=== PATIENT | female | born 2000 | race Caucasian/White ===

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

== ENCOUNTER 2022-10-24 13:23 | Emergency (ER) | payer MEDICAID, SELFPAY ==
[2022-10-24 13:31] VITALS: BP 126/77; PULSE 73; RESP 20; TEMP 36.7; O2SAT 100; BMI 22.1
--- NOTE | 2022-10-24 13:31 | ED_ITS ---
HPI - Female Genitourinary General Chief complaint: Vaginal Bleeding <TRISTA Jacob - Last Filed: 10/24/22 13:34> Stated complaint: Vaginal bleed X1 month <TRISTA Jacob - Last Filed: 10/24/22 13:34> Time Seen by Provider: 10/24/22 17:53 <TRISTA Jacob - Last Filed: 10/24/22 13:34> Source: patient, RN notes reviewed and old records reviewed <Michael Ortiz - Last Filed: 10/24/22 18:09> Mode of arrival: ambulatory <Michael Ortiz - Last Filed: 10/24/22 18:09> Limitations: no limitations <Michael Ortiz - Last Filed: 10/24/22 18:09> History of Present Illness HPI Narrative: 22-year-old female with past medical history significant for iron deficiency anemia presents for evaluation of vaginal bleeding. Patient reports that she has had vaginal bleeding daily for the last month. She has a Nexplanon implant her left arm that has been present for at least 6 months She has had no other changes to medications. She stop taking iron pills 2 years ago The patient denies any pain She did endorse some weakness when walking today She called her primary doctor to get an appointment was referred to the emergency department to ?make sure I do not need a blood transfusion. ? Denies any fevers, chills <Michael Ortiz - Last Filed: 10/24/22 18:09> Related Data Home medications: Previous Rx's Medication Instructions Recorded omeprazole 20 mg capsule,delayed 20 mg PO DAILY #20 caps 06/14/21 release ondansetron 4 mg disintegrating 4 mg PO Q6H PRN nausea and 06/14/21 tablet vomiting #15 tabs <TRISTA Jacob - Last Filed: 10/24/22 13:34> Allergies/Adverse reactions: Allergies Allergy/AdvReac Type Severity Reaction Status Date / Time Benzodiazepines Allergy Unknown ANGIOEDEMA Unverified 05/24/20 17:04 [BENZODIAZEPINES] cat dander [CATS] Allergy Unknown UNKNOWN Unverified 05/24/20 17:04 dog dander [DOGS] Allergy Unknown UNKNOWN Unverified 05/24/20 17:04 haloperidol [From HALDOL] Allergy Unknown ANGIOEDEMA Unverified 05/24/20 17:04 olive oil [OLIVE OIL] Allergy Unknown LIP Unverified 05/24/20 17:04 SWELLING pear [PEAR] Allergy Unknown LIP Unverified 05/24/20 17:04 SWELLING benzodiazepam Allergy Unknown Uncoded 09/24/16 00:00 cat dander Allergy Unknown Uncoded 09/24/16 00:00 dog dander Allergy Unknown Uncoded 09/24/16 00:00 haloperidol Allergy Unknown Uncoded 09/24/16 00:00 <TRISTA Jacob - Last Filed: 10/24/22 13:34> Review of Systems Constitutional: Constitutional: Reports as per HPI, Denies chills, Denies fever(s) and Reports weakness <Michael Ortiz - Last Filed: 10/24/22 18:09> Cardiovascular: Cardiovascular: Denies chest pain and Denies dyspnea <Michael Ortiz - Last Filed: 10/24/22 18:09> Respiratory: Respiratory: Denies cough and Denies dyspnea <Michael Ortiz - Last Filed: 10/24/22 18:09> Gastrointestinal: Gastrointestinal: Denies abdominal pain, Denies constipation and Denies vomiting <Michael Ortiz - Last Filed: 10/24/22 18:09> Genitourinary: Genitourinary: Denies dysuria and Reports other (Reports vaginal bleeding) <Michael Ortiz - Last Filed: 10/24/22 18:09> Neurologic: Reports weakness <Michael Ortiz - Last Filed: 10/24/22 18:09> [facility] Past Medical History Medical History: Medical History (Updated 10/24/22 @ 18:08 by Michael Ortiz) Anxiety Depression <TRISTA Jacob - Last Filed: 10/24/22 13:34> Social History Social History: Social History Alcohol intake: never Advance Directives: No Advance Directives Information Provided: Yes <TRISTA Jacob - Last Filed: 10/24/22 13:34> Physical Exam Vital Signs: Vital Signs: Last Vital Signs Temp 98.0 F 10/24/22 13:31 Pulse 73 10/24/22 13:31 Resp 20 10/24/22 13:31 BP 126/77 10/24/22 13:31 Pulse Ox 100 10/24/22 13:31 O2 Del Method 10/24/22 13:31 BMI result Body Mass Index 22.1 <TRISTA Jacob - Last Filed: 10/24/22 13:34> Vital Signs: Last Vital Signs Temp 98.0 F 10/24/22 13:31 Pulse 73 10/24/22 13:31 Resp 20 10/24/22 13:31 BP 126/77 10/24/22 13:31 Pulse Ox 100 10/24/22 13:31 O2 Del Method 10/24/22 13:31 BMI result Body Mass Index 22.1 <Michael AlanizMadison - Last Filed: 10/24/22 18:09> Const: General: cooperative, healthy appearing, comfortable, no acute distress, alert, awake and Physically active <Michael Ortiz - Last Filed: 10/24/22 18:09> Orientation/consciousness: patient oriented x3 <Michael Garrisony - Last Filed: 10/24/22 18:09> Limitations: no limitations <Michael AlanizMadison - Last Filed: 10/24/22 18:09> HEENT: Head: Yes normocephalic and Yes atraumatic <Michael OMg - Last Filed: 10/24/22 18:09> Neck: Neck: Yes normal visual inspection, Yes full ROM, Yes supple and No lymphadenopathy <Michael AlanizMadison - Last Filed: 10/24/22 18:09> Resp: Effort & Inspection: normal respiratory effort and able to speak in complete sentences <Michael Ortiz - Last Filed: 10/24/22 18:09> Auscultation: clear to auscultation bilaterally <Michael AlanizMadison Last Filed: 10/24/22 18:09> Cardio: Rate: regular rate <Michael O'Madison - Last Filed: 10/24/22 18:09> Rhythm: regular rhythm <Michaelkarly Garrison Last Filed: 10/24/22 18:09> GI: Inspection: No distended <Michael Ortiz Last Filed: 10/24/22 18:09> Palpation (GI): Soft to palpation, nontender and no guarding <Michael Garrisony - Last Filed: 10/24/22 18:09> : Other: Deferred per patient request <Michael Ortiz - Last Filed: 10/24/22 18:09> Skin: General skin exam: no rashes or lesions noted <Michael Ortiz - Last Filed: 10/24/22 18:09> Neuro: General: patient oriented x3 <Michael Ortiz - Last Filed: 10/24/22 18:09> Course Course Course Narrative: RME-13:35pm - 22yoF with a PMHx of anemia who is presenting to the ER with complaints of abnormal vaginal bleeding with clots since October 03 that has been persistent. She reports associated dizziness and decreased appetite. Reports she is using tampons approximately 2 tampons every 1-2 hours. She denies any nausea/vomiting, chest pain or shortness of breath, abdominal pain, dysuria, diarrhea constipation or any other symptoms complaints or concerns at this time. Plan: Labs, UA, type and screen ordered at this time. Patient to be sent back to the waiting room to be evaluated in the ED. <TRISTA Jacob - Last Filed: 10/24/22 13:34> Medical Decision Making Medical Decision Making MDM Narrative: For 22-year-old female presents for evaluation of vaginal bleeding x1 month. She has a known history of iron deficiency anemia has been noncompliant with her iron supplementation for last 2 years. She has had no recent change to her contraceptive management she has a Nexplanon for last 6 months or more. Patient's hemoglobin is 11.2 OS is on the higher end of her baseline of around 10. Her vital signs are stable. Patient deferred pelvic examination at this time. She would like to be discharged this time as she does not require blood transfusion and is medically stable. <Michael Ortiz - Last Filed: 10/24/22 18:09> Differential Diagnosis Vaginal bleeding, dysmenorrhea, menorrhagia, metformin nausea, anemia, symptomatic anemia <Michael Ortiz - Last Filed: 10/24/22 18:09> Lab Data [facility] Lab Attestation statement: I reviewed the patient's lab results. <Michael Ortiz - Last Filed: 10/24/22 18:09> Mild microcytic anemia <Michael Ortiz - Last Filed: 10/24/22 18:09> Result Diagrams: 10/24/22 14:02 10/24/22 14:02 <TRITSA Jacob - Last Filed: 10/24/22 13:34> Labs: Lab Results 10/24/22 10/24/22 10/24/22 Range/Units 14:02 14:02 14:02 WBC 8.4 (4.8-10.8) X10*3/uL RBC 6.06 H (4.20-5.50) X10*6/uL Hgb 11.2 L (12.0-16.0) g/dl Hct 37.4 (37.0-47.0) % MCV 61.7 L (80.0-98.0) fL MCH 18.5 L (27.0-33.0) pg MCHC 29.9 L (31.0-35.0) g/dl RDW 16.7 H (11.0-16.0) % Plt Count 242 (160-400) X10*3/uL MPV Not Reportable Immature Gran % (Auto) 0.5 H (0.0-0.4) % Neut % (Auto) 62.6 (45-73) % Lymph % (Auto) 25.2 (20-40) % [place] % (Auto) 6.2 (2-11) % Eos % (Auto) 5.0 H (0-4) % Baso % (Auto) 0.5 (0-2) % Lymph # (Auto) 2.1 (1.2-4.9) X10*3/uL [place] # (Auto) 0.5 (0.1-1.2) X10*3/uL Eos # (Auto) 0.4 (0.0-0.4) X10*3/uL Baso # (Auto) 0.0 (0.0-0.2) X10*3/uL Abs Immat Gran (auto) 0.04 H (0.00-0.03) X10*3/uL Absolute Neuts (auto) 5.3 (2.0-8.3) x10*3/uL Absolute Nucleated RBC 0.000 (0.0-0.012) X10*3/uL Nucleated RBC % (auto) 0.0 (0.0-0.2) /100WBC PT 12.5 (10.0-13.1) SEC INR 1.1 (0.9-1.1) Sodium 139 (135-145) mmol/L Potassium 4.3 (3.3-5.1) mmol/L Chloride 106 (96-108) mmol/L Carbon Dioxide 24 (22-29) mmol/L Anion Gap 13 (12-20) BUN 11 (9-16) mg/dL Creatinine 0.78 (0.5-1.4) mg/dL Estim Creat Clear Calc 103.4 Estimated GFR > 60 Random Glucose 98 (60-115) mg/dL Calcium 9.5 D (8.4-10.2) mg/dL Magnesium 2.0 (1.6-2.6) mg/dL Total Bilirubin 0.7 (0.0-1.0) mg/dL AST 16 (5-31) U/L ALT 17 (0-31) U/L Alkaline Phosphatase 95 (39-117) U/L Total Protein 7.9 (6.5-8.0) g/dL Albumin 4.6 (3.5-5.0) g/dL Lipase 9 (8-78) U/L Beta HCG, Quant < 2 mIU/mL Urine Color Urine Appearance Urine pH (5.0-9.0) Ur Specific [place] (1.005-1.025) Urine Protein (Neg-Trace) mg/dL Urine Glucose (UA) (Negative) mg/dL Urine Ketones (Negative) mg/dL Urine Blood (Negative) Urine Nitrite (Negative) Ur Leukocyte Esterase (Negative) Influenza Type A (PCR) (Negative) Influenza Type B (PCR) (Negative) RSV RNA Qual (PCR) (Negative) SARS-CoV-2 RNA (RT-PCR) (Negative) 10/24/22 10/24/22 Range/Units 14:02 14:07 WBC (4.8-10.8) X10*3/uL RBC (4.20-5.50) X10*6/uL Hgb (12.0-16.0) g/dl Hct (37.0-47.0) % MCV (80.0-98.0) fL MCH (27.0-33.0) pg MCHC (31.0-35.0) g/dl RDW (11.0-16.0) % Plt Count (160-400) X10*3/uL MPV Immature Gran % (Auto) (0.0-0.4) % Neut % (Auto) (45-73) % Lymph % (Auto) (20-40) % Mercer % (Auto) (2-11) % Eos % (Auto) (0-4) % Baso % (Auto) (0-2) % Lymph # (Auto) (1.2-4.9) X10*3/uL [place] # (Auto) (0.1-1.2) X10*3/uL Eos # (Auto) (0.0-0.4) X10*3/uL Baso # (Auto) (0.0-0.2) X10*3/uL Abs Immat Gran (auto) (0.00-0.03) X10*3/uL Absolute Neuts (auto) (2.0-8.3) x10*3/uL Absolute Nucleated RBC (0.0-0.012) X10*3/uL Nucleated RBC % (auto) (0.0-0.2) /100WBC PT (10.0-13.1) SEC INR (0.9-1.1) Sodium (135-145) mmol/L Potassium (3.3-5.1) mmol/L Chloride (96-108) mmol/L Carbon Dioxide (22-29) mmol/L Anion Gap (12-20) BUN (9-16) mg/dL Creatinine (0.5-1.4) mg/dL Estim Creat Clear Calc Estimated GFR Random Glucose (60-115) mg/dL Calcium (8.4-10.2) mg/dL Magnesium (1.6-2.6) mg/dL Total Bilirubin (0.0-1.0) mg/dL AST (5-31) U/L ALT (0-31) U/L Alkaline Phosphatase (39-117) U/L Total Protein (6.5-8.0) g/dL Albumin (3.5-5.0) g/dL Lipase (8-78) U/L Beta HCG, Quant mIU/mL Urine Color Yellow Urine Appearance Clear Urine pH 6.0 (5.0-9.0) Ur Specific [place] 1.025 (1.005-1.025) Urine Protein Trace (Neg-Trace) mg/dL Urine Glucose (UA) Negative (Negative) mg/dL Urine Ketones Negative (Negative) mg/dL Urine Blood Negative (Negative) Urine Nitrite Negative (Negative) Ur Leukocyte Esterase Negative (Negative) Influenza Type A (PCR) NEGATIVE (Negative) Influenza Type B (PCR) NEGATIVE (Negative) RSV RNA Qual (PCR) NEGATIVE (Negative) SARS-CoV-2 RNA (RT-PCR) NEGATIVE (Negative) <TRISTA Jacob - Last Filed: 10/24/22 13:34> Lab Results 10/24/22 10/24/22 10/24/22 Range/Units 14:02 14:02 14:02 WBC 8.4 (4.8-10.8) X10*3/uL RBC 6.06 H (4.20-5.50) X10*6/uL Hgb 11.2 L (12.0-16.0) g/dl Hct 37.4 (37.0-47.0) % MCV 61.7 L (80.0-98.0) fL MCH 18.5 L (27.0-33.0) pg MCHC 29.9 L (31.0-35.0) g/dl RDW 16.7 H (11.0-16.0) % Plt Count 242 (160-400) X10*3/uL MPV Not Reportable Immature Gran % (Auto) 0.5 H (0.0-0.4) % Neut % (Auto) 62.6 (45-73) % Lymph % (Auto) 25.2 (20-40) % [place] % (Auto) 6.2 (2-11) % Eos % (Auto) 5.0 H (0-4) % Baso % (Auto) 0.5 (0-2) % Lymph # (Auto) 2.1 (1.2-4.9) X10*3/uL [place] # (Auto) 0.5 (0.1-1.2) X10*3/uL Eos # (Auto) 0.4 (0.0-0.4) X10*3/uL Baso # (Auto) 0.0 (0.0-0.2) X10*3/uL Abs Immat Gran (auto) 0.04 H (0.00-0.03) X10*3/uL Absolute Neuts (auto) 5.3 (2.0-8.3) x10*3/uL Absolute Nucleated RBC 0.000 (0.0-0.012) X10*3/uL Nucleated RBC % (auto) 0.0 (0.0-0.2) /100WBC PT 12.5 (10.0-13.1) SEC INR 1.1 (0.9-1.1) Sodium 139 (135-145) mmol/L Potassium 4.3 (3.3-5.1) mmol/L Chloride 106 (96-108) mmol/L Carbon Dioxide 24 (22-29) mmol/L Anion Gap 13 (12-20) BUN 11 (9-16) mg/dL Creatinine 0.78 (0.5-1.4) mg/dL Estim Creat Clear Calc 103.4 Estimated GFR > 60 Random Glucose 98 (60-115) mg/dL Calcium 9.5 D (8.4-10.2) mg/dL Magnesium 2.0 (1.6-2.6) mg/dL Total Bilirubin 0.7 (0.0-1.0) mg/dL AST 16 (5-31) U/L ALT 17 (0-31) U/L Alkaline Phosphatase 95 (39-117) U/L Total Protein 7.9 (6.5-8.0) g/dL Albumin 4.6 (3.5-5.0) g/dL Lipase 9 (8-78) U/L Beta HCG, Quant < 2 mIU/mL Urine Color Urine Appearance Urine pH (5.0-9.0) Ur Specific [place] (1.005-1.025) Urine Protein (Neg-Trace) mg/dL Urine Glucose (UA) (Negative) mg/dL Urine Ketones (Negative) mg/dL Urine Blood (Negative) Urine Nitrite (Negative) Ur Leukocyte Esterase (Negative) Influenza Type A (PCR) (Negative) Influenza Type B (PCR) (Negative) RSV RNA Qual (PCR) (Negative) SARS-CoV-2 RNA (RT-PCR) (Negative) 10/24/22 10/24/22 Range/Units 14:02 14:07 WBC (4.8-10.8) X10*3/uL RBC (4.20-5.50) X10*6/uL Hgb (12.0-16.0) g/dl Hct (37.0-47.0) % MCV (80.0-98.0) fL MCH (27.0-33.0) pg MCHC (31.0-35.0) g/dl RDW (11.0-16.0) % Plt Count (160-400) X10*3/uL MPV Immature Gran % (Auto) (0.0-0.4) % Neut % (Auto) (45-73) % Lymph % (Auto) (20-40) % [place] % (Auto) (2-11) % Eos % (Auto) (0-4) % Baso % (Auto) (0-2) % Lymph # (Auto) (1.2-4.9) X10*3/uL [place] # (Auto) (0.1-1.2) X10*3/uL Eos # (Auto) (0.0-0.4) X10*3/uL Baso # (Auto) (0.0-0.2) X10*3/uL Abs Immat Gran (auto) (0.00-0.03) X10*3/uL Absolute Neuts (auto) (2.0-8.3) x10*3/uL Absolute Nucleated RBC (0.0-0.012) X10*3/uL Nucleated RBC % (auto) (0.0-0.2) /100WBC PT (10.0-13.1) SEC INR (0.9-1.1) Sodium (135-145) mmol/L Potassium (3.3-5.1) mmol/L Chloride (96-108) mmol/L Carbon Dioxide (22-29) mmol/L Anion Gap (12-20) BUN (9-16) mg/dL Creatinine (0.5-1.4) mg/dL Estim Creat Clear Calc Estimated GFR Random Glucose (60-115) mg/dL Calcium (8.4-10.2) mg/dL Magnesium (1.6-2.6) mg/dL Total Bilirubin (0.0-1.0) mg/dL AST (5-31) U/L ALT (0-31) U/L Alkaline Phosphatase (39-117) U/L Total Protein (6.5-8.0) g/dL Albumin (3.5-5.0) g/dL Lipase (8-78) U/L Beta HCG, Quant mIU/mL Urine Color Yellow Urine Appearance Clear Urine pH 6.0 (5.0-9.0) Ur Specific [place] 1.025 (1.005-1.025) Urine Protein Trace (Neg-Trace) mg/dL Urine Glucose (UA) Negative (Negative) mg/dL Urine Ketones Negative (Negative) mg/dL Urine Blood Negative (Negative) Urine Nitrite Negative (Negative) Ur Leukocyte Esterase Negative (Negative) Influenza Type A (PCR) NEGATIVE (Negative) Influenza Type B (PCR) NEGATIVE (Negative) RSV RNA Qual (PCR) NEGATIVE (Negative) SARS-CoV-2 RNA (RT-PCR) NEGATIVE (Negative) <Michael Ortiz - Last Filed: 10/24/22 18:09> Discharge Plan Discharge Clinical Impression: Dysmenorrhea <TRISTA Jacob - Last Filed: 10/24/22 13:34> Patient Disposition: Home, Self-Care <TRISTA Jacob - Last Filed: 10/24/22 13:34> Instructions: Dysmenorrhea (ED) <TRISTA Jacob - Last Filed: 10/24/22 13:34> Additional Instructions: Your hemoglobin today was 11.2 with hematocrit 37.4. These are both slightly better than your usual baseline. Follow-up with your primary doctor regarding your vaginal bleeding. You should have a pelvic examination if your symptoms continue <TRISTA Jacob - Last Filed: 10/24/22 13:34> Prescriptions: No Action omeprazole 20 mg capsule,delayed release(DR/EC) 20 mg PO DAILY Qty: 20 0RF ondansetron 4 mg tablet,disintegrating 4 mg PO Q6H PRN (Reason: nausea and vomiting) Qty: 15 0RF <TRISTA Jacob - Last Filed: 10/24/22 13:34> Stand Alone Forms: Work/School Release <TRISTA Jacob - Last Filed: 10/24/22 13:34>
[2022-10-24 14:13] LABS: MANUAL DIFF FLAG NO
[2022-10-24 14:16] LABS: Appearance Urine Clear; Color Urine Yellow; Glucose Urine UA Negative (Negative); Leukocyte Esterase Urine Negative (Negative); Nitrite Urine Negative (Negative); Specific Gravity - Urine 1.025 (1.005-1.025); Urine Blood Negative (Negative); Urine Ketones Negative (Negative); Urine Protein Trace mg/dL (Neg-Trace)
[2022-10-24 14:19] LABS: Basophils Percent Auto 0.5 % (0-2); Eosinophils Absolute Auto 0.4 X10*3/uL (0.0-0.4); Hematocrit 37.4 % (37.0-47.0); Hemoglobin 11.2 g/dl (12.0-16.0); Imm Gran Abs Auto 0.04 X10*3/uL (0.00-0.03); Imm Gran Pct Auto 0.5 % (0.0-0.4); Lymphocytes Absolute Auto 2.1 X10*3/uL (1.2-4.9); Lymphocytes Percent Auto 25.2 % (20-40); Mean Corpuscular HGB Conc 29.9 g/dl (31.0-35.0); Mean Corpuscular Hemoglobin 18.5 pg (27.0-33.0); Monocytes Absolute Auto 0.5 X10*3/uL (0.1-1.2); Monocytes Percent Auto 6.2 % (2-11); Neutrophils Absolute Auto 5.3 x10*3/uL (2.0-8.3); Neutrophils Percent Auto 62.6 % (45-73); Platelet Count 242 X10*3/uL (160-400); Red Blood Count 6.06 X10*6/uL (4.20-5.50); Red Cell Distribution Width 16.7 % (11.0-16.0); White Blood Count 8.4 X10*3/uL (4.8-10.8)
[2022-10-24 14:20] LABS: Mean Corpuscular Volume 61.7 fL (80.0-98.0)
[2022-10-24 14:32] LABS: INTERNATIONAL NORM RATIO 1.1 (0.9-1.1); Prothrombin Time 12.5 SEC (10.0-13.1)
[2022-10-24 14:38] LABS: Alanine Aminotransferase 17 U/L (0-31); Albumin Level 4.6 g/dL (3.5-5.0); Alkaline Phosphatase 95 U/L (39-117); Anion Gap 13 (12-20); Aspartate Amino Transferase 16 U/L (5-31); Bilirubin Total 0.7 mg/dL (0.0-1.0); Blood Urea Nitrogen 11 mg/dL (9-16); Calcium 9.5 mg/dL (8.4-10.2); Carbon Dioxide 24 mmol/L (22-29); Chloride 106 mmol/L (96-108); Creatinine Clr Calc Pharmacy 103.4; Estimated Glomerular Filt Rate > 60; Glucose Random 98 mg/dL (60-115); Lipase 9 U/L (8-78); Potassium 4.3 mmol/L (3.3-5.1); Sodium 139 mmol/L (135-145); Total Protein 7.9 g/dL (6.5-8.0)
[2022-10-24 14:42] LABS: HCG Quantitative < 2 mIU/mL
[2022-10-24 15:00] LABS: Influenza A PCR NEGATIVE (Negative); Influenza B PCR NEGATIVE (Negative); Resp Syncy Virus RNA Qual PCR NEGATIVE (Negative); SARS COV2 PCR INHOUSE NEGATIVE (Negative)
== END 2022-10-24 18:17 | disposition home or self-care (01) ==
PROVIDERS: Physician Assistant Medical; Emergency Provider Emergency Medicine; PCP Family Medicine
DX: N94.6 Dysmenorrhea, unspecified (principal); D50.9 Iron deficiency anemia, unspecified; Z79.899 Other long term (current) drug therapy; Z20.822 Contact with and (suspected) exposure to COVID-19; Z20.828 Contact with and (suspected) exposure to other viral communicable diseases
CPT/HCPCS: 0241U; 80053; 81003; 83690; 83735; 84702; 85025; 85610; 99282; 99283

== ENCOUNTER → 2023-10-16 14:30 | Outpatient (BNV) | payer MEDICAID, SELFPAY | PROVIDERS: Visit Provider Radiology Diagnostic Radiology | DX: R92.8 Other abnormal and inconclusive findings on diagnostic imaging of breast (principal) | CPT/HCPCS: 76642 ==

== ENCOUNTER 2023-10-16 14:35 | Outpatient (REF) | payer MEDICAID, SELFPAY ==
--- NOTE | ~2023-10-16 | US_ITS ---
EXAMINATION: US DIAGNOSTIC ULTRASOUND BREAST, RIGHT CLINICAL INFORMATION: 23-year-old female complaining of palpable abnormality right breast upper inner quadrant. Order states upper outer quadrant, however patient insists upper inner quadrant. COMPARISON: None available. TECHNIQUE: Ultrasound of the right breast is performed with real-time serna scale imaging and color Doppler. Attention to both the upper inner and upper outer quadrants were given. FINDINGS: There is no focal suspicious finding. There is no solid mass, architectural abnormality, duct ectasia, or edema in the soft tissue planes. There is no cystic abnormality. There is dense fibroglandular tissue, which appears to be most consistent with what the patient is feeling. US/US breast RT limited mamm only IMPRESSION: No findings suspicious for malignancy in the right breast. Palpable foci in the upper inner quadrant and upper outer quadrant show no abnormality on sonography. The patient is likely feeling ridges of dense fibroglandular tissue. Recommend clinical management. ASSESSMENT: BI-RADS 1 - Negative RECOMMENDATION: 1. Patient should be managed based on the clinical impression. Decision to proceed with biopsy should be based on clinical grounds and degree of clinical concern.
== END 2023-10-16 14:36 | disposition home or self-care (01) ==
LOC: HO.MAMMO 14:35
PROVIDERS: Visit Provider Family Medicine Adult Medicine
DX: N63.11 Unspecified lump in the right breast, upper outer quadrant (principal)
CPT/HCPCS: 76642